=== PATIENT | female | born 1965 | race African-American/Black ===

== ENCOUNTER → 2021-06-17 11:09 | Outpatient (BNVA) | payer MEDICARE, SELFPAY | PROVIDERS: Family Provider Family Medicine; PCP Family Medicine; Visit Provider Family Medicine | DX: F60.9 Personality disorder, unspecified (principal); G40.309 Generalized idiopathic epilepsy and epileptic syndromes, not intractable, without status epilepticus; Z00.00 Encounter for general adult medical examination without abnormal findings; Z12.31 Encounter for screening mammogram for malignant neoplasm of breast; Z12.11 Encounter for screening for malignant neoplasm of colon | CPT/HCPCS: 80053; 80185; 82270; 85025 ==

== ENCOUNTER → 2021-06-18 13:24 | Outpatient (BNVA) | payer MEDICARE, SELFPAY | PROVIDERS: Family Provider Family Medicine; PCP Family Medicine; Visit Provider Family Medicine | DX: Z12.11 Encounter for screening for malignant neoplasm of colon (principal); F60.9 Personality disorder, unspecified; G40.309 Generalized idiopathic epilepsy and epileptic syndromes, not intractable, without status epilepticus; Z00.00 Encounter for general adult medical examination without abnormal findings | CPT/HCPCS: G0328 ==

== ENCOUNTER → 2022-11-11 11:53 | Outpatient (BNVA) | payer MEDICARE, SELFPAY | PROVIDERS: Family Provider Family Medicine; PCP Family Medicine; Visit Provider Family Medicine | DX: G40.909 Epilepsy, unspecified, not intractable, without status epilepticus (principal) | CPT/HCPCS: 80053; 80185; 85025 ==

== ENCOUNTER → 2023-06-28 15:23 | Outpatient (BNVA) | payer MEDICARE, SELFPAY | PROVIDERS: Family Provider Family Medicine; PCP Family Medicine; Visit Provider Family Medicine | DX: Z00.00 Encounter for general adult medical examination without abnormal findings (principal); G40.909 Epilepsy, unspecified, not intractable, without status epilepticus; G40.309 Generalized idiopathic epilepsy and epileptic syndromes, not intractable, without status epilepticus; F60.9 Personality disorder, unspecified | CPT/HCPCS: 80185 ==